=== PATIENT | male | born 1970 | race Caucasian/White ===

== ENCOUNTER 2021-12-05 07:16 | Emergency (ER) | payer BC, SELFPAY ==
[2021-12-05] VITALS (10 sets, daily range): BP systolic 127–140; BP diastolic 63–72; PULSE 71–101; RESP 20; TEMP 36.6–36.8; O2SAT 96–99; BMI 26.4
--- NOTE | 2021-12-05 07:43 | DI.RAD.S_ITS ---
PROCEDURE: XR CHEST 1V INDICATIONS: cough TECHNIQUE: One view of the chest was acquired. COMPARISON: None. FINDINGS: Surgical changes and devices: None. Lungs and pleura: Reduced lung volumes. Lungs are clear. No pleural effusions or pneumothorax. Mediastinum: Mediastinal contours appear normal. Heart size is normal. Bones and chest wall: No suspicious bony lesions. Overlying soft tissues appear unremarkable. IMPRESSION: No acute cardiopulmonary abnormality. Dictated by: Yaya King M.D. on 12/05/2021 at 8:38 Approved by: Yaya King M.D. on 12/05/2021 at 8:38
[2021-12-05 08:28] LABS: Influenza A - CEPHEID Flu A NEGATIVE (NEGATIVE); Influenza B - CEPHEID Flu B NEGATIVE (NEGATIVE)
[2021-12-05 08:29] LABS: COVID19 -Nasal RAPID Negative (Negative)
--- NOTE | 2021-12-05 09:07 | ED_ITS ---
HPI - URI/Sore Throat General Chief Complaint: Upper Respiratory Symptoms Stated Complaint: Might be reaction to meds Time Seen by Provider: 12/05/21 08:04 Source: patient Mode of arrival: Wheelchair History of Present Illness HPI Narrative: Patient is a 51-year-old male with no past medical history presenting today with 8 days of cough. He was seen evaluated yesterday started on Augmentin and prednisone. However he is having significant coughing spells and episodes. Patient is visiting from [place]. States that his nephew and sister got sick with something similar. He has had COVID twice. He says he has never been quite this bad even with COVID. However he was hospitalized with oxygen all with COVID he says he certainly is not hypoxic he has been monitoring his oxygen as he did previously. Status complaint is his cough. Related Data Previous Rx's Medication Instructions Recorded albuterol sulfate 90 mcg/actuation 2 puff INHALATION Q4-6H PRN #8.5 12/05/21 aerosol inhaler gram codeine 7.5 mg-guaifenesin 225 5 ml PO Q6H PRN #150 ml 12/05/21 mg/5 mL oral liquid Allergies Allergy/AdvReac Type Severity Reaction Status Date / Time No Known Drug Allergies Allergy Verified 12/05/21 07:27 Review of Systems Review of Systems Narrative: My GENERAL: Denies chills, fatigue, malaise, fever, sweats, travel HEENT: Denies sinus pain, ear pain, sore throat, difficulty swallowing, neck pain RESPIRATORY: Denies dyspnea, cough, wheezing, hemoptysis, sputum. CARDIOVASCULAR: Denies chest pain, palpitations, orthopnea, edema GASTROINTESTINAL: Denies nausea, vomiting, abdominal pain, diarrhea, constipation, melena. : Denies dysuria, frequency, incontinence, hematuria, urinary retention, flank pain. MUSCULOSKELETAL: Denies weakness, joint pain, or bony pain SKIN: No rash, no erythema, no pruritus NEUROLOGIC: Denies weakness, dizziness, headache, numbness, change in speech, confusion PSYCHIATRIC: No concerning psychosocial issues. 12 point review of systems is negative except for those stated above and HPI Patient History Social History Smoking Status: Never smoker Smoking Status: Never smoker Substance Use Type: does not use Exam Initial Vital Signs Initial Vital Signs: Vital Signs Temperature 98.3 F 12/05/21 07:24 Pulse Rate 83 12/05/21 07:24 Respiratory Rate 20 12/05/21 07:24 Blood Pressure 127/65 12/05/21 07:24 Pulse Oximetry 97 12/05/21 07:24 GENERAL: Alert 51-year-old male appears to not feel well HEENT: Head atraumatic,EOMI, pupils reactive, face symmetric, moist mucous membranes CARDIOVASCULAR: Regular rate and rhythm without murmurs, rubs or gallops. RESPIRATORY: Reactive airway coughing spasm slight bilateral wheezing in a able to speak in full sentences ABDOMEN: Soft, nontender. Normoactive bowel sounds all 4 quadrants. No guarding or rebound. EXTREMITIES: Normal range of motion, no clubbing or edema. Neurovascularly intact NEUROLOGICAL: Alert and oriented x4.Normal gait and speech. SKIN: Warm, dry, no laceration, no petechiae, no rashes or lesions. Course Orders Ordered: ED Orders 12/05/21 07:36 COVID19 -Nasal RAPID/Pre-Proc Stat 12/05/21 07:41 Flu test [Influenza A & B (PCR)] Stat 12/05/21 07:43 XR chest 1V Stat 12/05/21 09:05 CBC Auto Diff [Complete Blood Count AUTO DIFF] Stat CMP [Comprehensive Metabolic Panel] Stat Lactate (Lactic Acid) Stat Procalcitonin Stat Discontinued Medications Acetaminophen (Acetaminophen 325 Mg Tablet) 975 mg PO NOW ONE Stop: 12/05/21 10:22 Last Admin: 12/05/21 10:25 Dose: 975 mg Documented by: [email or web address] Albuterol (Albuterol 2.5 Mg/3 Ml Neb (Adult)) 2.5 mg INH NOW ONE Stop: 12/05/21 09:03 Last Admin: 12/05/21 09:08 Dose: 2.5 mg Documented by: [email or web address] Albuterol (Albuterol 2.5 Mg/3 Ml Neb (Adult)) 2.5 mg INH NOW ONE Stop: 12/05/21 10:22 Last Admin: 12/05/21 10:26 Dose: 2.5 mg Documented by: JUANYOTEM Albuterol/Ipratropium (Albuterol/Ipratropium 3 Ml Ampul) 3 ml INH NOW ONE Stop: 12/05/21 09:03 Last Admin: 12/05/21 09:08 Dose: 3 ml Documented by: [email or web address] Budesonide (Budesonide 0.5 Mg/2 Ml Neb) 0.5 mg INH NOW ONE Stop: 12/05/21 09:03 Last Admin: 12/05/21 09:08 Dose: 0.5 mg Documented by: ROBBIE Dexamethasone (Dexamethasone 10 Mg/Ml Vial) 10 mg IV NOW ONE Stop: 12/05/21 09:03 Last Admin: 12/05/21 09:28 Dose: 10 mg Documented by: RJ Sodium Chloride (Normal Saline 0.9%) 1,000 mls @ 1,000 mls/hr IV BOLUS ONE Stop: 12/05/21 10:01 Last Infusion: 12/05/21 11:05 Dose: 0 mls/hr Documented by: Admin: 12/05/21 09:27 Dose: 1,000 mls/hr Documented by: RJ Vital Signs Vital signs: Vital Signs - 8 hr 12/05/21 08:47 12/05/21 09:00 12/05/21 09:09 Temperature Pulse Rate 71 101 H Respiratory Rate Blood Pressure 138/72 Pulse Oximetry 98 96 97 12/05/21 09:30 12/05/21 10:00 12/05/21 10:27 Temperature Pulse Rate 76 72 82 Respiratory Rate Blood Pressure 134/70 Pulse Oximetry 97 96 99 12/05/21 10:30 12/05/21 10:31 12/05/21 11:00 Temperature 97.8 F Pulse Rate 72 89 Respiratory Rate 20 Blood Pressure 128/71 140/63 Pulse Oximetry 97 96 97 MDM - URI/Sore Throat Lab Data Result diagrams: 12/05/21 09:05 12/05/21 09:05 Labs: Lab Results 12/05/21 12/05/21 12/05/21 Range/Units 07:36 07:41 09:05 WBC 15.2 H (4.5-11.0) X10^3/uL RBC 4.42 L (4.5-5.9) X10^6/uL Hgb 14.2 (13.5-17.5) g/dL Hct 42.6 (41-53) % MCV 96.3 (80-100) fL MCH 32.1 (26-34) PG MCHC 33.3 (30-36) % RDW 14.4 (11.6-14.8) % Plt Count 303 (150-400) X10^3/uL Neut % (Auto) 88.0 H (50-75) % Lymph % (Auto) 9.0 L (25-40) % [place] % (Auto) 2.5 L (3-14) % Eos % (Auto) 0.1 L (2-4) % Baso % (Auto) 0.4 (0-2) % Neut # (Auto) 85426 H (8744-5085) /uL Lymph # (Auto) 1400 (5202-8894) /uL [place] # (Auto) 400 (0-900) /uL Eos # (Auto) 0 (0-450) /uL Baso # (Auto) 100 (0-100) /uL Sodium (137-145) mmol/L Potassium (3.4-5.1) mmol/L Chloride (98-107) mmol/L Carbon Dioxide (22-32) mmol/L BUN (9-20) mg/dL Creatinine (0.66-1.25) mg/dL Estimated GFR (>60) mL/min BUN/Creatinine Ratio (6-22) Glucose (70-100) mg/dL Lactate (0.7-2.1) mmol/L Calcium (8.4-10.2) mg/dL Total Bilirubin (0.2-1.3) mg/dL AST (17-59) IU/L ALT (<50) IU/L Alkaline Phosphatase (38-126) U/L Total Protein (6.3-8.2) g/dL Albumin (3.5-5.0) g/dL Globulin (1.7-4.1) g/dL Albumin/Globulin Ratio (1.0-2.8) Procalcitonin (<0.5) ng/mL SARS-CoV-2 (PCR) Negative (Negative) Influenza A (RT-PCR) Flu a negative (NEGATIVE) Influenza B (RT-PCR) Flu b negative (NEGATIVE) 12/05/21 12/05/21 12/05/21 Range/Units 09:05 09:05 09:05 WBC (4.5-11.0) X10^3/uL RBC (4.5-5.9) X10^6/uL Hgb (13.5-17.5) g/dL Hct (41-53) % MCV (80-100) fL MCH (26-34) PG MCHC (30-36) % RDW (11.6-14.8) % Plt Count (150-400) X10^3/uL Neut % (Auto) (50-75) % Lymph % (Auto) (25-40) % [place] % (Auto) (3-14) % Eos % (Auto) (2-4) % Baso % (Auto) (0-2) % Neut # (Auto) (6402-4842) /uL Lymph # (Auto) (1826-4114) /uL [place] # (Auto) (0-900) /uL Eos # (Auto) (0-450) /uL Baso # (Auto) (0-100) /uL Sodium 140 (137-145) mmol/L Potassium 4.5 (3.4-5.1) mmol/L Chloride 107 (98-107) mmol/L Carbon Dioxide 21 L (22-32) mmol/L BUN 18 (9-20) mg/dL Creatinine 0.92 (0.66-1.25) mg/dL Estimated GFR > 60 (>60) mL/min BUN/Creatinine Ratio 19.6 (6-22) Glucose 113 H (70-100) mg/dL Lactate 2.9 H (0.7-2.1) mmol/L Calcium 9.3 (8.4-10.2) mg/dL Total Bilirubin 0.4 (0.2-1.3) mg/dL AST 37 (17-59) IU/L ALT 50 H (<50) IU/L Alkaline Phosphatase 61 (38-126) U/L Total Protein 8.0 (6.3-8.2) g/dL Albumin 4.7 (3.5-5.0) g/dL Globulin 3.3 (1.7-4.1) g/dL Albumin/Globulin Ratio 1.4 (1.0-2.8) Procalcitonin 0.04 (<0.5) ng/mL SARS-CoV-2 (PCR) (Negative) Influenza A (RT-PCR) (NEGATIVE) Influenza B (RT-PCR) (NEGATIVE) Imaging Data Chest x-ray: Radiologist's Impression: XRay Report Signed Patient: Kaveh Sanderson MR#: [id number] : 1970 Acct:[id number] Age/Sex: 51 / M Date of Service: 12/05/21 Loc: ED Accession Number: [id number] ?? Procedure: XR chest 1V Ordering Provider: Daina Brandt D.O. PROCEDURE:? XR CHEST 1V ? INDICATIONS:? cough ? TECHNIQUE:? One view of the chest was acquired.? ? COMPARISON:? None. ? FINDINGS:? ? Surgical changes and devices:? None.? ? Lungs and pleura:? Reduced lung volumes.? Lungs are clear.? No pleural effusions or pneumothorax.? ? Mediastinum:? Mediastinal contours appear normal.? Heart size is normal.? ? Bones and chest wall:? No suspicious bony lesions.? Overlying soft tissues appear unremarkable.? ? IMPRESSION:? No acute cardiopulmonary abnormality. ? ? Dictated by: Yaya King M.D. on 12/05/2021 at 8:38 ? ? Approved by: Yaya King M.D. on 12/05/2021 at 8:38 ? MDM Narrative Medical decision making narrative: Patient has obvious bronchospasm he actually improved significantly with albuterol. He does have mild leukocytosis which may be stress induced versus prednisone. He he has mild elevated lactate 2.9 he is given 1 L of fluid. No indication for antibiotics at this time although he is already on Augmentin. I do recommend that he finish the antibiotics. He is on prednisone as well. His the patient continues to have coughing spells but no indication for admission at this time. Patient's symptoms are viral in Job go spasm like. He improved with bronchodilators. Do not think pulmonary embolism or cardiac cause of his cough at this time. Discharge Plan Departure Patient Disposition: Home Clinical Impression: Upper respiratory infection Instructions: DI for Viral Upper Respiratory Infection -- Adult Activity Restrictions/Additional Instructions: *You have been diagnosed with upper respiratory infection, *What to do: I am sorry you have such a bad cough. This is likely a viral infection. Her x-ray does not show pneumonia however I still recommend that he finish her course of antibiotics. *Continue to take medications as directed Albuterol 1-2 puffs with spacer every 4 hours if needed for coughing spasm or shortness of breath Cough syrup 5 mL every 6 hours only if needed for coughing. This will make you sleepy do not drive Finish antibiotics as prescribed Finished prednisone as prescribed *Follow up with your primary care provider in 2-3 days or call [phone] *Return to ER if you should have fever, confusion, persistent cough, shortness of breath any new, worsening or concerning symptoms CONTROLLED SUBSTANCE DISCHARGE (Narcotoic/benzodiazepine/Flexeril/Phenergan) 1. You have been prescribed narcotic medications, it does have acetaminophen/Tylenol/paracetamol in it, DO NOT TAKE MORE THAN 4,00mg in 24 hours of Tylenol. TRAMADOL DOES NOT CONTAIN TYLENOL 2. Please understand that we cannot provide further refills of narcotics, benzodiazepines or controlled substances through the ED and her pain management will need to be through your provider. 3. While on these medications you cannot drive or operate heavy machinery. 4. You cannot sign legal documents or perform any duties such as this. 5. As long as you're taking opiate pain medications he should also be taking a stool softener such as Colace, Dulcolax, MiraLAX or prune juice, to help avoid constipation. Prescriptions: New codeine-guaifenesin 7.5-225 mg/5 mL liquid 5 ml PO Q6H PRN (Reason: cold symptoms) Qty: 150 0RF albuterol sulfate 90 mcg/actuation HFA aerosol inhaler 2 puff INHALATION Q4-6H PRN (Reason: shortness of breath or wheezing) Qty: 8.5 0RF
[2021-12-05] MEDS: ALBUTEROL 2.5 MG/3 ML NEB (ADULT) INH ×2 (09:08→10:26)
[2021-12-05] MEDS: ALBUTEROL/IPRATROPIUM 3 ML AMPUL INH (09:08)
[2021-12-05] MEDS: BUDESONIDE 0.5 MG/2 ML NEB INH (09:08)
[2021-12-05 09:16] LABS: Add Manual Diff / Slide Review NO; Basophils Absolute Auto 100 /uL (0-100); Basophils Percent Auto 0.4 % (0-2); Eosinophils Absolute Auto 0 /uL (0-450); Eosinophils Percent Auto 0.1 % (2-4); Hematocrit 42.6 % (41-53); Hemoglobin 14.2 g/dL (13.5-17.5); Lymphocytes Absolute Auto 1400 /uL (1100-4500); Mean Corpuscular HGB Conc 33.3 % (30-36); Mean Corpuscular Hemoglobin 32.1 PG (26-34); Mean Corpuscular Volume 96.3 fL (80-100); Monocytes Absolute Auto 400 /uL (0-900); Monocytes Percent Auto 2.5 % (3-14); Neutrophils Absolute Auto 13400 /uL (1500-7000); Platelet Count 303 X10^3/uL (150-400); Red Blood Cell Count 4.42 X10^6/uL (4.5-5.9); Red Cell Distribution Width 14.4 % (11.6-14.8); White Blood Cell Count 15.2 X10^3/uL (4.5-11.0)
[2021-12-05] MEDS: SODIUM CHLORIDE 0.9% 1,000 ML 1000 ML IV (09:27)
[2021-12-05] MEDS: DEXAMETHASONE 10 MG/ML VIAL IV (09:28)
[2021-12-05 09:29] LABS: Alanine Aminotransferase 50 IU/L (<50); Albumin 4.7 g/dL (3.5-5.0); Albumin Globulin Ratio 1.4 (1.0-2.8); Alkaline Phosphatase 61 U/L (38-126); Aspartate Aminotransferase 37 IU/L (17-59); BUN Creatinine Ratio 19.6 (6-22); Bilirubin Total 0.4 mg/dL (0.2-1.3); Blood Urea Nitrogen 18 mg/dL (9-20); Calcium 9.3 mg/dL (8.4-10.2); Carbon Dioxide 21 mmol/L (22-32); Chloride 107 mmol/L (98-107); Estimated Glomerular Filt Rate > 60 mL/min (>60); Globulin 3.3 g/dL (1.7-4.1); Glucose 113 mg/dL (70-100); HEMOLYSIS < 15 (0-50); Potassium 4.5 mmol/L (3.4-5.1); Sodium 140 mmol/L (137-145)
[2021-12-05 09:46] LABS: Procalcitonin 0.04 ng/mL (<0.5)
[2021-12-05 09:55] LABS: Lactate (Lactic Acid) 2.9 mmol/L (0.7-2.1)
[2021-12-05] MEDS: ACETAMINOPHEN 325 MG TABLET 975 MG PO (10:25)
[2021-12-05 11:46] LABS: Reflexed Lactate in 2 Hours Y
== END 2021-12-05 11:29 | disposition home or self-care (01) ==
PROVIDERS: Emergency Provider Emergency Medicine
DX: J06.9 Acute upper respiratory infection, unspecified (principal); R05.9 Cough, unspecified; Z20.822 Contact with and (suspected) exposure to COVID-19; R79.89 Other specified abnormal findings of blood chemistry
CPT/HCPCS: 36415; 71045; 80053; 83605; 84145; 85025; 87502; 87635; 94640; 96361; 96374; 99284; C9803; J1100; J7613